=== PATIENT | female | born 1975 | race African-American/Black ===

== ENCOUNTER 2016-04-28 16:35 | Emergency (ER) | payer OTHER ==
[~2016-04-28] VITALS: Ht 160 cm; Wt 72.6 kg
[~2016-04-28 16:35] MED LIST: ALBUTEROL INHAL17 GM IH; AUGMENTIN 875875 MG PO; AZITHROMYCIN 2250 MG PO; BACTRIM DS TAB1 EACH PO; CIPRO500 MG PO; CIPROFLOXACIN500 M1 PO; DIFLUCAN150 MG PO; FLAGYL500 MG PO; FLEXERIL PO; IBUPROFEN 600600 M1 PO; MACROBID 100 M100 M1 PO; NAPROSYN500 MG PO; NOHOMEMEDICATIONS; NORCO 5-325 TA1 EACH PO; PEPCID20 MG PO; PEPCID40 MG PO; PHENERGAN 25 MG25 M1 PO; PREDNISONE 20 M20 MG PO; PREDNISONE50 MG PO; PROVENTIL HFA6.7 G1 INH; TRAMADOL 50 MG50 MG PO; ZOFRAN ODT4 MG PO; ZPAK PO; ZYRTEC10 M2 PO
[2016-04-28 16:58] LABS: URINE BILIRUBIN NEGATIVE (Negative); URINE BLOOD 1+ (Negative); URINE COLOR YELLOW; URINE GLUCOSE-RANDOM* NEGATIVE (Negative); URINE KETONES NEGATIVE (Negative); URINE LEUKOCYTES-REFLEX 2+ (Negative); URINE PROTEIN (DIPSTICK) NEGATIVE (Negative); URINE UROBILINOGEN 0.2 E.U./dl (0.2-1.0)
[2016-04-28 17:03] LABS: SQUAMOUS 4-10 Moderate /LPF (0-3); URINE WBC-REFLEX 6-15 Few /HPF (0-5)
[2016-04-28 17:04] LABS: CASTS None Seen /LPF (None Seen); CRYSTALS None Seen /LPF (None Seen); URINE RBC 0-2 Rare /HPF (0-2)
[2016-04-28] MEDS ORDERED: FLAGYL500 MG PO (17:40)
[2016-04-28 17:52] VITALS: BP 115/61
== END 2016-04-28 17:52 | disposition home or self-care (01) ==
LOC: ER 16:35
PROVIDERS: Physician Assistant
DX: A59.01 Trichomonal vulvovaginitis (principal); Z98.890 Other specified postprocedural states; Z88.6 Allergy status to analgesic agent; F17.210 Nicotine dependence, cigarettes, uncomplicated; F10.99 Alcohol use, unspecified with unspecified alcohol-induced disorder

== ENCOUNTER 2016-07-21 06:03 | Emergency (ER) | payer OTHER ==
[~2016-07-21] VITALS: Ht 160 cm; Wt 72.6 kg
[2016-07-21 06:56] VITALS: BP 112/72
== END 2016-07-21 06:56 | disposition home or self-care (01) ==
LOC: ER 06:03
DX: J02.0 Streptococcal pharyngitis (principal); F17.210 Nicotine dependence, cigarettes, uncomplicated; Z88.5 Allergy status to narcotic agent

== ENCOUNTER 2016-07-28 22:58 | Emergency (ER) | payer OTHER ==
[~2016-07-28] VITALS: Ht 160 cm; Wt 73.0 kg
[2016-07-29] MEDS ORDERED: MIRALAX17 GM PO (00:48)
[2016-07-29] MEDS ORDERED: FLAGYL500 MG PO (01:00)
[2016-07-29 01:43] VITALS: BP 118/74
== END 2016-07-29 01:44 | disposition home or self-care (01) ==
LOC: ER 22:58
DX: A59.9 Trichomoniasis, unspecified (principal); K59.00 Constipation, unspecified; M54.41 Lumbago with sciatica, right side; Z20.2 Contact with and (suspected) exposure to infections with a predominantly sexual mode of transmission; G89.18 Other acute postprocedural pain; Z98.890 Other specified postprocedural states; Z88.5 Allergy status to narcotic agent; F17.210 Nicotine dependence, cigarettes, uncomplicated

== ENCOUNTER 2017-01-17 09:24 | Emergency (ER) | payer OTHER ==
[~2017-01-17] VITALS: Ht 160 cm; Wt 77.1 kg
[~2017-01-17 09:24] MED LIST changes: +MIRALAX17 GM PO
[2017-01-17] MEDS ORDERED: DILANTIN100 MG PO (09:36)
[2017-01-17] MEDS ORDERED: ERYTHROMYCIN E3.5 G3 OPHTHALMIC (11:19)
[2017-01-17 11:20] VITALS: BP 120/76
[2017-01-17] MEDS ORDERED: FLAGYL500 MG PO (11:24)
== END 2017-01-17 11:36 | disposition home or self-care (01) ==
LOC: ER 09:24
DX: H10.213 Acute toxic conjunctivitis, bilateral (principal); T49.5X5A Adverse effect of ophthalmological drugs and preparations, initial encounter; Z11.3 Encounter for screening for infections with a predominantly sexual mode of transmission; F17.210 Nicotine dependence, cigarettes, uncomplicated; F10.99 Alcohol use, unspecified with unspecified alcohol-induced disorder; Z88.5 Allergy status to narcotic agent; Y92.89 Other specified places as the place of occurrence of the external cause

== ENCOUNTER 2017-06-26 20:42 | Emergency (ER) | payer OTHER ==
[~2017-06-26] VITALS: Ht 160 cm; Wt 77.1 kg
[~2017-06-26 20:42] MED LIST changes: +BLEPH-105 ML OPHTHALMIC; +DILANTIN100 MG PO; +ERYTHROMYCIN E3.5 G3 OPHTHALMIC; +MOBIC15 MG PO
[2017-06-26 21:09] LABS: URINE BILIRUBIN NEGATIVE (Negative); URINE BLOOD TRACE (Negative); URINE CLARITY CLEAR; URINE COLOR YELLOW; URINE GLUCOSE-RANDOM* NEGATIVE (Negative); URINE KETONES TRACE (Negative); URINE LEUKOCYTES NEGATIVE (Negative); URINE NITRITE NEGATIVE (Negative); URINE PROTEIN (DIPSTICK) NEGATIVE (Negative); URINE SPECIFIC GRAVITY >= 1.030 (1.005-1.035); URINE UROBILINOGEN 0.2 E.U./dl (0.2-1.0)
[2017-06-26 22:58] VITALS: BP 123/72
== END 2017-06-26 23:02 | disposition home or self-care (01) ==
LOC: ER 20:42
PROVIDERS: Nurse Practitioner Family
DX: N89.8 Other specified noninflammatory disorders of vagina (principal); N85.8 Other specified noninflammatory disorders of uterus; F17.210 Nicotine dependence, cigarettes, uncomplicated; Z88.6 Allergy status to analgesic agent

== ENCOUNTER 2017-11-05 19:18 | Emergency (ER) | payer OTHER ==
[~2017-11-05] VITALS: Ht 160 cm; Wt 81.7 kg
[2017-11-05] MEDS ORDERED: IBUPROFEN 200200 M1 PO (20:19)
[2017-11-05 20:30] LABS: URINE BILIRUBIN NEGATIVE (Negative); URINE BLOOD NEGATIVE (Negative); URINE CLARITY CLEAR; URINE COLOR YELLOW; URINE GLUCOSE-RANDOM* NEGATIVE (Negative); URINE KETONES NEGATIVE (Negative); URINE LEUKOCYTES-REFLEX NEGATIVE (Negative); URINE NITRITE-REFLEX NEGATIVE (Negative); URINE PROTEIN (DIPSTICK) NEGATIVE (Negative); URINE UROBILINOGEN 0.2 E.U./dl (0.2-1.0)
[2017-11-05] MEDS ORDERED: FLAGYL500 MG PO (21:20)
[2017-11-05 21:57] VITALS: BP 122/66
[2017-11-07 16:10] LABS: NEISSERIA GONORRHEA-PCR Negative (Negative)
== END 2017-11-05 21:52 | disposition home or self-care (01) ==
LOC: ER 19:18
PROVIDERS: Physician Assistant
DX: N76.0 Acute vaginitis (principal); F17.210 Nicotine dependence, cigarettes, uncomplicated; Z98.890 Other specified postprocedural states; Z88.5 Allergy status to narcotic agent

== ENCOUNTER 2018-03-30 09:57 | Emergency (ER) | payer OTHER ==
[~2018-03-30] VITALS: Ht 160 cm; Wt 83.9 kg
[~2018-03-30 09:57] MED LIST changes: +IBUPROFEN 200200 M1 PO
[2018-03-30 10:36] LABS: URINE BILIRUBIN NEGATIVE (Negative); URINE BLOOD NEGATIVE (Negative); URINE CLARITY CLEAR; URINE COLOR YELLOW; URINE GLUCOSE-RANDOM* NEGATIVE (Negative); URINE KETONES NEGATIVE (Negative); URINE LEUKOCYTES-REFLEX NEGATIVE (Negative); URINE NITRITE-REFLEX NEGATIVE (Negative); URINE PROTEIN (DIPSTICK) NEGATIVE (Negative); URINE SPECIFIC GRAVITY 1.015 (1.005-1.035); URINE UROBILINOGEN 0.2 E.U./dl (0.2-1.0)
[2018-03-30] MEDS ORDERED: FLAGYL500 M1 PO (11:22)
[2018-03-30 11:41] VITALS: BP 121/78
== END 2018-03-30 11:41 | disposition home or self-care (01) ==
LOC: ER 09:57
PROVIDERS: Nurse Practitioner Family
DX: N76.0 Acute vaginitis (principal); B96.89 Other specified bacterial agents as the cause of diseases classified elsewhere; K59.00 Constipation, unspecified; N85.8 Other specified noninflammatory disorders of uterus; F17.210 Nicotine dependence, cigarettes, uncomplicated; Z88.5 Allergy status to narcotic agent; Z98.890 Other specified postprocedural states

== ENCOUNTER 2018-04-25 03:47 | Emergency (ER) | payer OTHER ==
[~2018-04-25] VITALS: Ht 160 cm; Wt 86.6 kg
[~2018-04-25 03:47] MED LIST changes: +FLAGYL500 M1 PO
[2018-04-25] MEDS ORDERED: ANTI-ITCH28 G1 TOP (04:09)
[2018-04-25] MEDS ORDERED: DIFLUCAN150 M1 PO (04:09)
[2018-04-25 04:16] LABS: URINE BILIRUBIN NEGATIVE (Negative); URINE BLOOD NEGATIVE (Negative); URINE CLARITY CLEAR; URINE COLOR YELLOW; URINE GLUCOSE-RANDOM* NEGATIVE (Negative); URINE KETONES NEGATIVE (Negative); URINE LEUKOCYTES NEGATIVE (Negative); URINE NITRITE NEGATIVE (Negative); URINE PROTEIN (DIPSTICK) NEGATIVE (Negative); URINE SPECIFIC GRAVITY 1.025 (1.005-1.035); URINE UROBILINOGEN 0.2 E.U./dl (0.2-1.0)
[2018-04-25 04:40] VITALS: BP 122/75
== END 2018-04-25 04:40 | disposition home or self-care (01) ==
LOC: ER 03:47
PROVIDERS: Student in an Organized Health Care Education/Training Program
DX: B37.3 Candidiasis of vulva and vagina (principal); F17.210 Nicotine dependence, cigarettes, uncomplicated; Z88.5 Allergy status to narcotic agent; Z98.890 Other specified postprocedural states

== ENCOUNTER 2018-06-28 20:19 | Emergency (ER) | payer OTHER ==
[~2018-06-28] VITALS: Ht 160 cm; Wt 86.6 kg
[~2018-06-28 20:19] MED LIST changes: +ANTI-ITCH28 G1 TOP; +DIFLUCAN150 M1 PO
[2018-06-28 20:25] VITALS: BP 120/59
[2018-06-28] MEDS ORDERED: BACTRIM DS TAB1 EACH PO (20:47)
== END 2018-06-28 20:56 | disposition home or self-care (01) ==
LOC: ER 20:19
DX: N61.1 Abscess of the breast and nipple (principal); F17.210 Nicotine dependence, cigarettes, uncomplicated; Z88.5 Allergy status to narcotic agent; Z98.890 Other specified postprocedural states

== ENCOUNTER 2018-08-03 03:14 | Emergency (ER) | payer OTHER ==
[~2018-08-03] VITALS: Ht 160 cm; Wt 86.6 kg
[2018-08-03 04:24] VITALS: BP 105/73
== END 2018-08-03 04:25 | disposition home or self-care (01) ==
LOC: ER 03:14
DX: Z20.2 Contact with and (suspected) exposure to infections with a predominantly sexual mode of transmission (principal); F17.210 Nicotine dependence, cigarettes, uncomplicated

== ENCOUNTER 2018-08-16 07:37 | Emergency (ER) | payer OTHER ==
[~2018-08-16] VITALS: Ht 160 cm; Wt 86.6 kg
[2018-08-16 07:52] LABS: URINE BILIRUBIN NEGATIVE (Negative); URINE BLOOD NEGATIVE (Negative); URINE CLARITY CLEAR; URINE COLOR YELLOW; URINE GLUCOSE-RANDOM* NEGATIVE (Negative); URINE KETONES NEGATIVE (Negative); URINE LEUKOCYTES-REFLEX NEGATIVE (Negative); URINE NITRITE-REFLEX NEGATIVE (Negative); URINE PROTEIN (DIPSTICK) NEGATIVE (Negative); URINE SPECIFIC GRAVITY 1.025 (1.005-1.035); URINE UROBILINOGEN 0.2 E.U./dl (0.2-1.0)
[2018-08-16] MEDS ORDERED: FLAGYL500 M1 PO (09:20)
[2018-08-16] MEDS ORDERED: DIFLUCAN150 M1 PO (09:20)
[2018-08-16 09:37] VITALS: BP 112/64
== END 2018-08-16 09:39 | disposition home or self-care (01) ==
LOC: ER 07:37
PROVIDERS: Student in an Organized Health Care Education/Training Program
DX: N76.0 Acute vaginitis (principal); Z98.890 Other specified postprocedural states; F17.210 Nicotine dependence, cigarettes, uncomplicated; Z88.5 Allergy status to narcotic agent

== ENCOUNTER 2019-01-20 17:19 | Emergency (ER) | payer OTHER ==
[~2019-01-20] VITALS: Ht 160 cm; Wt 81.7 kg
[2019-01-20] MEDS ORDERED: CLEOCIN HCL150 MG PO (18:52)
[2019-01-20] MEDS ORDERED: AMOXICILLIN 50500 MG PO (18:52)
[2019-01-20] MEDS ORDERED: TRIAMCINOLONE A80 G2 TOP (18:52)
[2019-01-20 19:04] VITALS: BP 111/69
== END 2019-01-20 19:10 | disposition home or self-care (01) ==
LOC: ER 17:19
DX: N76.0 Acute vaginitis (principal); H61.21 Impacted cerumen, right ear; Z98.890 Other specified postprocedural states; Z88.5 Allergy status to narcotic agent; Z87.891 Personal history of nicotine dependence

== ENCOUNTER 2019-03-08 07:33 | Emergency (ER) | payer OTHER ==
[~2019-03-08] VITALS: Ht 160 cm; Wt 84.8 kg
[~2019-03-08 07:33] MED LIST changes: +AMOXICILLIN 50500 MG PO; +CLEOCIN HCL150 MG PO; +TRIAMCINOLONE A80 G2 TOP
[2019-03-08 07:41] VITALS: BP 117/73
[2019-03-08] MEDS ORDERED: CLINDAMYCIN HC300 MG PO (08:13)
== END 2019-03-08 08:23 | disposition home or self-care (01) ==
LOC: ER 07:33
DX: N76.0 Acute vaginitis (principal); B96.89 Other specified bacterial agents as the cause of diseases classified elsewhere; Z76.0 Encounter for issue of repeat prescription; F17.210 Nicotine dependence, cigarettes, uncomplicated; Z88.5 Allergy status to narcotic agent; Z98.890 Other specified postprocedural states

== ENCOUNTER 2019-05-21 10:06 | Emergency (ER) | payer OTHER ==
[~2019-05-21] VITALS: Ht 160 cm; Wt 81.7 kg
[~2019-05-21 10:06] MED LIST changes: +CLINDAMYCIN HC300 MG PO
[2019-05-21 10:46] LABS: URINE BILIRUBIN NEGATIVE (Negative); URINE BLOOD NEGATIVE (Negative); URINE CLARITY CLEAR; URINE COLOR YELLOW; URINE GLUCOSE-RANDOM* NEGATIVE (Negative); URINE KETONES NEGATIVE (Negative); URINE LEUKOCYTES-REFLEX 2+ (Negative); URINE NITRITE-REFLEX NEGATIVE (Negative); URINE PROTEIN (DIPSTICK) NEGATIVE (Negative); URINE SPECIFIC GRAVITY 1.025 (1.005-1.035); URINE UROBILINOGEN 0.2 E.U./dl (0.2-1.0)
[2019-05-21 10:57] LABS: BACTERIA-REFLEX 1-9 Few /HPF (None Seen); CASTS None Seen /LPF (None Seen); CRYSTALS None Seen /LPF (None Seen); SQUAMOUS None Seen /LPF (0-3); URINE RBC None Seen /HPF (0-2)
[2019-05-21] MEDS ORDERED: FLUCONAZOLE150 MG PO (11:28)
[2019-05-21 11:35] VITALS: BP 122/71
== END 2019-05-21 11:35 | disposition home or self-care (01) ==
LOC: ER 10:06
PROVIDERS: Emergency Medicine
DX: A59.9 Trichomoniasis, unspecified (principal); F17.210 Nicotine dependence, cigarettes, uncomplicated; Z98.890 Other specified postprocedural states

== ENCOUNTER 2019-05-27 07:58 | Emergency (ER) | payer OTHER ==
[~2019-05-27] VITALS: Ht 160 cm; Wt 83.5 kg
[~2019-05-27 07:58] MED LIST changes: +FLUCONAZOLE150 MG PO
[2019-05-27 08:00] VITALS: BP 133/84
== END 2019-05-27 08:55 | disposition home or self-care (01) ==
LOC: ER 07:58
DX: R10.30 Lower abdominal pain, unspecified (principal); N89.8 Other specified noninflammatory disorders of vagina; F17.210 Nicotine dependence, cigarettes, uncomplicated; Z98.890 Other specified postprocedural states

== ENCOUNTER 2019-06-09 07:48 | Emergency (ER) | payer OTHER ==
[~2019-06-09] VITALS: Ht 160 cm; Wt 84.8 kg
[2019-06-09 10:04] LABS: URINE BILIRUBIN NEGATIVE (Negative); URINE BLOOD NEGATIVE (Negative); URINE CLARITY CLEAR; URINE COLOR YELLOW; URINE GLUCOSE-RANDOM* NEGATIVE (Negative); URINE KETONES NEGATIVE (Negative); URINE LEUKOCYTES-REFLEX NEGATIVE (Negative); URINE NITRITE-REFLEX NEGATIVE (Negative); URINE PROTEIN (DIPSTICK) NEGATIVE (Negative); URINE UROBILINOGEN 0.2 E.U./dl (0.2-1.0)
[2019-06-09] MEDS ORDERED: FLAGYL500 M1 PO (11:33)
[2019-06-09 11:42] VITALS: BP 105/74
== END 2019-06-09 11:43 | disposition home or self-care (01) ==
LOC: ER 07:48
PROVIDERS: Emergency Medicine
DX: N89.8 Other specified noninflammatory disorders of vagina (principal); F17.210 Nicotine dependence, cigarettes, uncomplicated; Z98.890 Other specified postprocedural states; Z88.5 Allergy status to narcotic agent

== ENCOUNTER 2019-09-23 07:00 | Emergency (ER) | payer OTHER ==
[~2019-09-23] VITALS: Ht 160 cm; Wt 79.8 kg
[2019-09-23 07:40] LABS: URINE BILIRUBIN NEGATIVE (Negative); URINE BLOOD NEGATIVE (Negative); URINE CLARITY CLEAR; URINE COLOR YELLOW; URINE GLUCOSE-RANDOM* NEGATIVE (Negative); URINE KETONES NEGATIVE (Negative); URINE LEUKOCYTES-REFLEX NEGATIVE (Negative); URINE NITRITE-REFLEX NEGATIVE (Negative); URINE PROTEIN (DIPSTICK) NEGATIVE (Negative); URINE UROBILINOGEN 0.2 E.U./dl (0.2-1.0)
[2019-09-23] MEDS ORDERED: CLEOCIN HCL300 MG PO (08:10)
[2019-09-23 08:15] VITALS: BP 106/74
== END 2019-09-23 08:15 | disposition home or self-care (01) ==
LOC: ER 07:00
PROVIDERS: Emergency Medicine
DX: N89.8 Other specified noninflammatory disorders of vagina (principal); R10.2 Pelvic and perineal pain; F17.210 Nicotine dependence, cigarettes, uncomplicated; Z88.6 Allergy status to analgesic agent

== ENCOUNTER 2019-10-27 07:00 | Emergency (ER) | payer OTHER ==
[~2019-10-27] VITALS: Ht 162.6 cm; Wt 78.4 kg
[~2019-10-27 07:00] MED LIST changes: +CLEOCIN HCL300 MG PO
[2019-10-27 07:26] LABS: URINE BILIRUBIN NEGATIVE (Negative); URINE BLOOD TRACE (Negative); URINE CLARITY CLEAR; URINE COLOR YELLOW; URINE GLUCOSE-RANDOM* NEGATIVE (Negative); URINE KETONES NEGATIVE (Negative); URINE LEUKOCYTES-REFLEX NEGATIVE (Negative); URINE NITRITE-REFLEX NEGATIVE (Negative); URINE PROTEIN (DIPSTICK) NEGATIVE (Negative); URINE SPECIFIC GRAVITY >= 1.030 (1.005-1.035); URINE UROBILINOGEN 0.2 E.U./dl (0.2-1.0)
[2019-10-27 09:27] VITALS: BP 120/72
== END 2019-10-27 09:41 | disposition home or self-care (01) ==
LOC: ER 07:00
PROVIDERS: Emergency Medicine
DX: N89.8 Other specified noninflammatory disorders of vagina (principal); R10.30 Lower abdominal pain, unspecified; Z98.890 Other specified postprocedural states; Z88.5 Allergy status to narcotic agent; F17.210 Nicotine dependence, cigarettes, uncomplicated

== ENCOUNTER 2020-01-13 06:41 | Emergency (ER) | payer OTHER ==
[~2020-01-13] VITALS: Ht 160 cm; Wt 77.1 kg
[2020-01-13 08:15] VITALS: BP 128/76
== END 2020-01-13 08:15 | disposition home or self-care (01) ==
LOC: ER 06:41
DX: M25.562 Pain in left knee (principal); F17.210 Nicotine dependence, cigarettes, uncomplicated; Z88.6 Allergy status to analgesic agent; W18.39XA Other fall on same level, initial encounter; Y93.89 Activity, other specified; Y92.89 Other specified places as the place of occurrence of the external cause; Y99.8 Other external cause status

== ENCOUNTER 2020-05-10 11:18 | Emergency (ER) | payer BC, OTHER ==
[~2020-05-10] VITALS: Ht 160 cm; Wt 78.9 kg
[2020-05-10] MEDS ORDERED: METRONIDAZOLE500 M4 PO (12:48)
[2020-05-10] MEDS ORDERED: DOXYCYCLINE 10100 MG PO (12:48)
[2020-05-10 13:13] VITALS: BP 118/76
== END 2020-05-10 13:14 | disposition home or self-care (01) ==
LOC: ER 11:18
DX: T19.2XXA Foreign body in vulva and vagina, initial encounter (principal); A64 Unspecified sexually transmitted disease; N89.8 Other specified noninflammatory disorders of vagina; F17.210 Nicotine dependence, cigarettes, uncomplicated; Z98.890 Other specified postprocedural states; Z88.5 Allergy status to narcotic agent; X58.XXXA Exposure to other specified factors, initial encounter; Y93.89 Activity, other specified; Y92.89 Other specified places as the place of occurrence of the external cause; Y99.8 Other external cause status

== ENCOUNTER 2020-10-05 12:55 | Emergency (ER) | payer OTHER ==
[~2020-10-05] VITALS: Ht 160 cm; Wt 78.9 kg
[~2020-10-05 12:55] MED LIST changes: +DOXYCYCLINE 10100 MG PO; +METRONIDAZOLE500 M4 PO
[2020-10-05 13:55] LABS: URINE BILIRUBIN NEGATIVE (Negative); URINE BLOOD NEGATIVE (Negative); URINE CLARITY CLEAR; URINE COLOR YELLOW; URINE GLUCOSE-RANDOM* NEGATIVE (Negative); URINE KETONES NEGATIVE (Negative); URINE LEUKOCYTES-REFLEX NEGATIVE (Negative); URINE NITRITE-REFLEX NEGATIVE (Negative); URINE PROTEIN (DIPSTICK) NEGATIVE (Negative); URINE UROBILINOGEN 0.2 E.U./dl (0.2-1.0)
[2020-10-05] MEDS ORDERED: FLAGYL500 M1 PO (14:19)
[2020-10-05 14:46] VITALS: BP 119/85
== END 2020-10-05 15:00 | disposition home or self-care (01) ==
LOC: ER 12:55
PROVIDERS: Physician Assistant
DX: N76.0 Acute vaginitis (principal); F17.210 Nicotine dependence, cigarettes, uncomplicated; Z98.890 Other specified postprocedural states; Z88.5 Allergy status to narcotic agent

== ENCOUNTER 2021-04-16 13:19 | Emergency (ER) | payer OTHER ==
[~2021-04-16] VITALS: Ht 160 cm; Wt 85.7 kg
[2021-04-16 14:37] LABS: URINE BILIRUBIN NEGATIVE (Negative); URINE BLOOD NEGATIVE (Negative); URINE CLARITY CLEAR; URINE COLOR YELLOW; URINE GLUCOSE-RANDOM* NEGATIVE (Negative); URINE KETONES NEGATIVE (Negative); URINE LEUKOCYTES-REFLEX NEGATIVE (Negative); URINE NITRITE-REFLEX NEGATIVE (Negative); URINE PROTEIN (DIPSTICK) NEGATIVE (Negative); URINE UROBILINOGEN 0.2 E.U./dl (0.2-1.0)
[2021-04-16] MEDS ORDERED: METRONIDAZOLE500 M4 PO (17:52)
[2021-04-16 18:11] VITALS: BP 121/74
== END 2021-04-16 18:11 | disposition home or self-care (01) ==
LOC: ER 13:19
PROVIDERS: Emergency Medicine; Nurse Practitioner
DX: N76.0 Acute vaginitis (principal); M79.621 Pain in right upper arm; B96.89 Other specified bacterial agents as the cause of diseases classified elsewhere; F17.210 Nicotine dependence, cigarettes, uncomplicated; Z98.890 Other specified postprocedural states; Z79.899 Other long term (current) drug therapy; Z88.5 Allergy status to narcotic agent